=== PATIENT | female | born 1955 | race Hispanic/Latino ===

== ENCOUNTER → 2016-12-09 | Outpatient (CLI) | payer OTHER | END | disposition home or self-care (01) | LOC: CDC 10:40 | DX: Z01.810 Encounter for preprocedural cardiovascular examination (principal); K64.9 Unspecified hemorrhoids; R00.1 Bradycardia, unspecified | CPT/HCPCS: 93000 ==

== ENCOUNTER 2016-12-20 06:06 | Day surgery (SDC) | payer OTHER ==
[~2016-12-20] VITALS: Ht 147.3 cm; Wt 48.5 kg
[~2016-12-20 06:06] MED LIST: ALKA-SELTZER G1 EAC1 PO; ANTACID420 MG PO; FLONASE16 G1 BOTH NARES; LIPITOR40 MG PO; PROBIOTIC1 EAC3 PO; RECLAST5 MG/100 M IV; VITAMIN B COMP1 EACH PO; VITAMIN D31000 UNIT PO
[2016-12-20 06:58] VITALS: BP 155/76
[2016-12-20] MEDS ORDERED: COLACE100 MG PO (08:14)
[2016-12-20] MEDS ORDERED: PERCOCET 5/31 TABLET PO (08:14)
[2016-12-20] MEDS ORDERED: ANECREAM30 GM TP (08:14)
[2016-12-20 09:30] VITALS: BP 175/84
[2016-12-20 10:20] VITALS: BP 157/86
[2016-12-20 11:40] VITALS: BP 171/85
== END 2016-12-20 11:40 | disposition home or self-care (01) ==
LOC: SDC
PROC: 0DBQXZZ Excision of Anus, External Approach (ICD-10-PCS; principal; 2016-12-20)
DX: K62.89 Other specified diseases of anus and rectum (principal); K64.4 Residual hemorrhoidal skin tags; K59.09 Other constipation; K29.70 Gastritis, unspecified, without bleeding; E78.5 Hyperlipidemia, unspecified; M19.049 Primary osteoarthritis, unspecified hand; M81.0 Age-related osteoporosis without current pathological fracture; I10 Essential (primary) hypertension; J30.9 Allergic rhinitis, unspecified; Z82.0 Family history of epilepsy and other diseases of the nervous system; Z88.8 Allergy status to other drugs, medicaments and biological substances
CPT/HCPCS: 88304; J1100; J2250; J2405; J3010

== ENCOUNTER 2017-05-24 16:00 | Emergency (ER) | payer OTHER ==
[~2017-05-24] VITALS: Ht 149.9 cm; Wt 48.3 kg
[~2017-05-24 16:00] MED LIST changes: +ANECREAM30 GM TP; +COLACE100 MG PO; +PERCOCET 5/31 TABLET PO
[2017-05-24 16:50] LABS: HEMATOCRIT 41.1 % (36.0-46.0); MCH 30.7 PG (29.0-34.0); MCHC 34.1 G/DL (30.0-36.0); MCV 90.1 FL (83-99); RBC DIS.WIDTH-CV 12.7 % (11.8-14.6); RBC DIS.WIDTH-SD 41.8 % (39-53); RED BLOOD COUNT 4.56 M/uL (3.80-5.20); WHITE BLOOD COUNT 3.6 K/uL (4.1-10.2)
[2017-05-24 16:58] LABS: ALBUMIN 4.5 g/dL (3.2-4.8)
[2017-05-24 16:59] LABS: CHLORIDE 105 mEq/L (99-109); POTASSIUM 4.5 mEq/L (3.7-5.4); SODIUM 140 mEq/L (136-147)
[2017-05-24 17:01] LABS: GLUCOSE 154 mg/dL (70-99); TOTAL PROTEIN 7.8 g/dL (6.4-8.3)
[2017-05-24 17:03] LABS: TOTAL BILIRUBIN 0.5 mg/dL (0.0-1.0)
[2017-05-24 17:04] LABS: ALKALINE PHOSPHATASE 109 IU/L (3-129)
[2017-05-24 17:05] LABS: CREATININE 0.7 mg/dL (0.6-1.3); GFR ESTIMATE (CALCULATED) > 59 mL/min/
[2017-05-24 17:06] LABS: AST (GOT) 28 IU/L (2-34); UREA NITROGEN (BUN) 10 mg/dL (9-23)
[2017-05-24 17:07] LABS: ALT (GPT) 34 IU/L (3-49)
[2017-05-24 17:11] LABS: TROP-I INTERPRETATION NEGATIVE; TROPONIN-I < 0.01 ng/mL (0.0-0.30)
[2017-05-24 17:39] LABS: PLAT.SUFFICIENCY ADEQUATE; PLATELET COUNT 229 K/uL (156-360)
[2017-05-24] MEDS ORDERED: ANTIVERT25 MG PO (17:51)
[2017-05-24 18:06] VITALS: BP 134/76
== END 2017-05-24 18:08 | disposition home or self-care (01) ==
LOC: EME 16:00
PROVIDERS: Physician Assistant
DX: R42 Dizziness and giddiness (principal); K21.9 Gastro-esophageal reflux disease without esophagitis
CPT/HCPCS: 80053; 81003; 84484; 85027; 93005; 99281; 99283